=== PATIENT | female | born 1985 | race Caucasian/White ===

== ENCOUNTER 2016-09-24 19:18 | Emergency (ER) | payer MEDICAID ==
--- NOTE | 2016-09-24 19:44 | C.PDOC ---
History Of Present Illness 31 year old patient presents to the ED complaining of fever and body aches since yesterday. Patient also complains of a non-productive cough. Patient denies nausea, vomiting, or dysuria. She is also 26 weeks . Time Seen by Provider: 09/24/16 19:38 Chief Complaint (Nursing): Fever History Per: Patient History/Exam Limitations: no limitations Onset/Duration Of Symptoms: Days (1) Current Symptoms Are (Timing): Still Present Location Of Pain: Other Sick Contacts (Context): None Associated Symptoms: Fever, Cough, Other (body aches) Severity: Mild Pain Scale Rating Of: 3 Recent travel outside of the [place]: No Past Medical History Reviewed: Historical Data, Nursing Documentation, Vital Signs Vital Signs: Last Vital Signs Temp 98.1 F 09/24/16 19:29 Pulse 106 H 09/24/16 19:29 Resp 18 09/24/16 19:29 BP 111/71 09/24/16 19:29 Pulse Ox 98 09/24/16 19:46 Family History: States: Unknown Family Hx - Social History Hx Alcohol Use: No Hx Substance Use: No - Immunization History Hx Tetanus Toxoid Vaccination: Yes Hx Influenza Vaccination: Yes Hx Pneumococcal Vaccination: Yes Review Of Systems Except As Marked, All Systems Reviewed And Found Negative. Constitutional: Positive for: Fever, Other (body aches) Respiratory: Positive for: Cough (productive) Gastrointestinal: Negative for: Nausea, Vomiting Genitourinary: Negative for: Dysuria Physical Exam - Physical Exam Appears: Non-toxic, No Acute Distress Skin: Warm, Dry Head: Atraumatic, Normacephalic Eye(s): bilateral: Normal Inspection, PERRL, EOMI Nose: Normal Oral Mucosa: Moist Throat: Normal, No Erythema, No Exudate Neck: Normal ROM, Supple Chest: Symmetrical Cardiovascular: Rhythm Regular Respiratory: Normal Breath Sounds, No Rales, No Rhonchi, No Wheezing Extremity: Normal ROM Neurological/Psych: Oriented x3, Normal Speech, Normal Cognition Gait: Steady ED Course And Treatment - Laboratory Results Result Diagrams: 09/24/16 20:02 09/24/16 20:02 O2 Sat by Pulse Oximetry: 98 (RA) Pulse Ox Interpretation: Normal Progress Note: Plan: -Labs Disposition Counseled Patient/Family Regarding: Diagnosis - Disposition Referrals: [facility] [Outside] Disposition: HOME/ ROUTINE Disposition Time: 20:42 Condition: STABLE Prescriptions: guaiFENesin [Robitussin] 100 mg PO QID #120 dose Acetaminophen [Tylenol 325mg tab] 650 mg PO Q4 #20 tab Instructions: Influenza (ED) Forms: Gen Discharge Inst Romansh Print Language: SLOVENIAN - POA Present On Arrival: None - Clinical Impression Clinical Impression: Fever, Influenza, - Scribe Statement The provider has reviewed the documentation as recorded by the Wonibsalbador Olivarez Provider Attestation: All medical record entries made by the Wonibsalbador were at my direction and personally dictated by me. I have reviewed the chart and agree that the record accurately reflects my personal performance of the history, physical exam, medical decision making, and the department course for this patient. I have also personally directed, reviewed, and agree with the discharge instructions and disposition.
[2016-09-24 20:05] LABS: BASO % 0.5 % (0.0-2.0); EOS # 0.1 K/uL (0.0-0.7); EOS % 1.4 % (0.0-4.0); HEMATOCRIT 33.7 % (34.0-47.0); LYMPH # 1.1 K/uL (1.0-4.3); MEAN CELL VOLUME 91.7 fL (81.0-99.0); MEAN CORPUSCULAR HEMOGLOBIN 31.1 pg (27.0-31.0); MEAN CORPUSCULAR HGB CONC 33.9 g/dL (33.0-37.0); MEAN PLATELET VOLUME 8.5 fL (7.2-11.7); MONO # 0.5 K/uL (0.0-0.8); WHITE BLOOD COUNT 7.8 K/uL (4.8-10.8)
[2016-09-24 20:11] LABS: PLATELET COUNT 129 K/uL (130-400)
[2016-09-24 20:12] LABS: CHLORIDE 100 mmol/L (98-107); POTASSIUM 3.6 mmol/L (3.6-5.2); SODIUM 134 mmol/L (132-148)
[2016-09-24 20:14] LABS: ALB/GLOB RATIO 1.1 (1.0-2.1); ALKALINE PHOSPHATASE 47 U/L (38-126); ALT/SGPT 20 U/L (9-52); AST/SGOT 18 U/L (14-36); BILIRUBIN,TOTAL 0.1 mg/dL (0.2-1.3); BLOOD UREA NITROGEN 5 mg/dL (7-17); CARBON DIOXIDE 21 mmol/L (22-30); GFR AFRICAN-AMERICAN > 60; RBC URINE < 1 /hpf (0-3); TOTAL PROTEIN 6.9 g/dL (6.3-8.3); URINE BILIRUBIN NEGATIVE (NEGATIVE); URINE BLOOD 1+ (NEGATIVE); URINE COLOR Straw (YELLOW); URINE GLUCOSE (UA) NORMAL (Normal); URINE KETONE NEGATIVE (NEGATIVE); URINE LEUKOCYTE ESTERASE NEG Leu/uL (Negative); URINE PROTEIN NEGATIVE (NEGATIVE); URINE UROBILINOGEN NORMAL mg/dL (0.2-1.0); WBC URINE 1 /hpf (0-5)
[2016-09-24 20:15] LABS: CALCIUM 8.5 mg/dl (8.6-10.4); GLUCOSE,RANDOM 82 mg/dL (65-105)
[2016-09-24 21:16] VITALS: BP 113/69; PULSE 97; RESP 20; TEMP 98; O2SAT 100
== END 2016-09-24 21:15 | disposition home or self-care (01) ==
LOC: C.ER 19:18
DX: J11.1 Influenza due to unidentified influenza virus with other respiratory manifestations (principal); R50.9 Fever, unspecified; O26.892 Other specified pregnancy related conditions, second trimester; Z3A.26 26 weeks gestation of pregnancy

== ENCOUNTER 2016-10-07 11:32 | Emergency (ER) | payer MEDICAID ==
[2016-10-07 11:48] VITALS: BP 117/73; PULSE 106; RESP 22; TEMP 98.6; O2SAT 98
--- NOTE | 2016-10-07 12:25 | C.PDOC ---
History Of Present Illness The patient, a 31 y/o female who is currently , presents to the ED for evaluation of fever, right shoulder pain and generalized body aches which began around two days ago after she received a vaccination. Patient states she took Tylenol with minimal improvement. Otherwise, she denies chest pain, SOB, abdominal pain, nausea, vomiting. Time Seen by Provider: 10/07/16 11:58 Chief Complaint (Nursing): Flu-like Symptoms History Per: Patient History/Exam Limitations: no limitations Onset/Duration Of Symptoms: Days (2) Current Symptoms Are (Timing): Still Present Location Of Pain: Diffuse Myalgias Sick Contacts (Context): None Associated Symptoms: Fever. denies: Cough, Nausea, Vomiting Ear Symptoms: Bilateral: None Additional History Per: Patient Past Medical History Reviewed: Historical Data, Nursing Documentation, Vital Signs Vital Signs: Last Vital Signs Temp 98.6 F 10/07/16 11:42 Pulse 106 H 10/07/16 11:42 Resp 22 10/07/16 11:42 BP 117/73 10/07/16 11:42 Pulse Ox 98 10/07/16 13:02 - Medical History PMH: No Chronic Diseases Surgical History: No Surg Hx Family History: States: Unknown Family Hx - Social History Hx Alcohol Use: No Hx Substance Use: No - Immunization History Hx Tetanus Toxoid Vaccination: Yes Hx Influenza Vaccination: Yes Hx Pneumococcal Vaccination: Yes Review Of Systems Except As Marked, All Systems Reviewed And Found Negative. Constitutional: Positive for: Fever Respiratory: Positive for: Cough Gastrointestinal: Negative for: Nausea, Vomiting Musculoskeletal: Positive for: Shoulder Pain (right ), Other (generalized body pain ) Physical Exam - Physical Exam Appears: Non-toxic, No Acute Distress Skin: Normal Color, Warm, Dry Head: Atraumatic, Normacephalic Eye(s): bilateral: Normal Inspection, PERRL, EOMI Ear(s): Bilateral: Normal Nose: Normal, No Discharge Oral Mucosa: Moist Throat: Normal, No Erythema, No Exudate Neck: Normal ROM, Supple Chest: Symmetrical, No Deformity, No Tenderness Cardiovascular: Rhythm Regular, No Murmur Respiratory: Normal Breath Sounds, No Rales, No Rhonchi, No Wheezing Gastrointestinal/Abdominal: Soft, No Tenderness, No Guarding, No Rebound Extremity: Normal ROM, No Deformity, No Swelling Neurological/Psych: Oriented x3, Normal Speech Gait: Steady ED Course And Treatment O2 Sat by Pulse Oximetry: 98 (on RA) Pulse Ox Interpretation: Normal Medical Decision Making Medical Decision Making: Impression: 31 y/o female with fever, body aches Plan: * Tylenol PO * reassess and disposition Progress Notes: Patient received Tylenol PO. Patient remained afebrile and in no acute distress. Advise patient to continue Tylenol for any pain or fever. Drink fluids and to follow up with primary physician. Disposition Counseled Patient/Family Regarding: Diagnosis, Need For Followup, Rx Given - Disposition Disposition: HOME/ ROUTINE Disposition Time: 12:23 Condition: STABLE Additional Instructions: Usted puede saul tylenol 650-975mg cada 6 horas para cualquier dolor o fiebre Seguimiento en la clnica Instructions: Viral Syndrome (ED) Print Language: PASHTO - POA Present On Arrival: None - Clinical Impression Clinical Impression: Post-vaccination fever, Influenza-like illness - PA / COAT BASTER / Resident Statement MD/DO has reviewed & agrees with the documentation as recorded. - Scribe Statement The provider has reviewed the documentation as recorded by the Scribe (Daxa Olivarez) All medical record entries made by the Scribe were at my direction and personally dictated by me. I have reviewed the chart and agree that the record accurately reflects my personal performance of the history, physical exam, medical decision making, and the department course for this patient. I have also personally directed, reviewed, and agree with the discharge instructions and disposition.
== END 2016-10-07 12:30 | disposition home or self-care (01) ==
LOC: C.ER 11:32
DX: R50.83 Postvaccination fever (principal); J11.1 Influenza due to unidentified influenza virus with other respiratory manifestations

== ENCOUNTER 2016-11-14 09:27 | Emergency (ER) | payer MEDICAID ==
[2016-11-14 09:36] VITALS: O2SAT 99
[2016-11-14 09:39] VITALS: BMI 29.9
[2016-11-14] MEDS ORDERED: Albuterol-Ipratrop 3 mg / 0.5 (3 ml) UD IH STA (09:48)
[2016-11-14] MEDS ORDERED: Albuterol-Ipratrop 3 mg / 0.5 (3 ml) UD ONE (09:55)
--- NOTE | 2016-11-14 11:03 | C.PDOC ---
History Of Present Illness 31 yr old female who is 33 weeks , com complications and is on pre care, presents to the ER with complaints of 2 day history of cough, congestion and difficulty breathing. Patient reports she had a history of asthma as a child but none since then. Patient states she has not tried any medications yet. Patient states the baby is moving. Denies fever, chest pain, nausea, vomiting, abdominal pain, diarrhea, dysuria, vaginal bleeding, weakness or numbness. Time Seen by Provider: 11/14/16 09:40 Chief Complaint (Nursing): Cough, Cold, Congestion History/Exam Limitations: no limitations Onset/Duration Of Symptoms: Days (2) Past Medical History Reviewed: Historical Data, Nursing Documentation, Vital Signs Vital Signs: Last Vital Signs Temp 98.3 F 11/14/16 09:35 Pulse 118 H 11/14/16 09:35 Resp 24 11/14/16 09:35 BP 122/74 11/14/16 09:35 Pulse Ox 99 11/14/16 11:06 Family History: States: No Known Family Hx - Social History Hx Alcohol Use: No Hx Substance Use: No - Immunization History Hx Tetanus Toxoid Vaccination: Yes Hx Influenza Vaccination: Yes Hx Pneumococcal Vaccination: Yes Review Of Systems Except As Marked, All Systems Reviewed And Found Negative. Constitutional: Negative for: Fever ENT: Positive for: Nose Congestion Cardiovascular: Negative for: Chest Pain Respiratory: Positive for: Cough, Other ((+) Difficulty breathing. ) Gastrointestinal: Negative for: Nausea, Vomiting, Abdominal Pain, Diarrhea Genitourinary: Negative for: Dysuria, Vaginal Bleeding Neurological: Negative for: Weakness, Numbness Physical Exam - Physical Exam Appears: Well, Non-toxic, No Acute Distress Skin: Warm, Dry, No Rash Head: Atraumatic, Normacephalic Throat: Normal, No Erythema, No Exudate Neck: Normal, Normal ROM, Supple Chest: Symmetrical, No Tenderness Cardiovascular: Rhythm Regular, No Murmur Respiratory: No Rales, No Rhonchi, No Stridor, Wheezing (Bilaterally) Gastrointestinal/Abdominal: Normal Exam, Soft, No Tenderness, Other (gravid non tender uterus) Extremity: Normal ROM, No Swelling Neurological/Psych: Oriented x3, Normal Speech ED Course And Treatment O2 Sat by Pulse Oximetry: 99 Medical Decision Making Medical Decision Making: PLAN: * Albuterol IH wheezint resolved post tx dc home mdi Disposition - Disposition Referrals: Clinic,Med Surg [Primary Care Provider] - Disposition: HOME/ ROUTINE Disposition Time: 11:22 Condition: FAIR Prescriptions: Albuterol HFA [Ventolin HFA 90 mcg/actuation (8 g)] 1 puff IH QID PRN #1 puff PRN Reason: Cough Inhaler, Assist Devices [Space Chamber Plus] 1 each MC PRN #1 spacer Instructions: Upper Respiratory Infection (ED), Reactive Airways Disease (ED) - Clinical Impression Clinical Impression: Viral syndrome, Reactive airway disease - Scribe Statement The provider has reviewed the documentation as recorded by the Wonibsalbador Daniel Provider Attestation: All medical record entries made by the Wonibsalbador were at my direction and personally dictated by me. I have reviewed the chart and agree that the record accurately reflects my personal performance of the history, physical exam, medical decision making, and the department course for this patient. I have also personally directed, reviewed, and agree with the discharge instructions and disposition.
[2016-11-14 11:27] VITALS: BP 109/74; PULSE 107; RESP 20; TEMP 97.9
== END 2016-11-14 11:29 | disposition home or self-care (01) ==
LOC: SUPCPDRO 09:27 → C.ER 09:27
DX: B34.9 Viral infection, unspecified (principal); J98.9 Respiratory disorder, unspecified

== ENCOUNTER 2016-12-28 21:01 | Inpatient (IN) | payer MEDICAID ==
[2016-12-28] MEDS ORDERED: Dextrose 5%/Lactated Ringer's 1,000 ML IV SCH (21:30)
[2016-12-28] MEDS ORDERED: Lactated Ringer's 1,000 ML IV SCH (21:30)
[2016-12-28 21:51] LABS: BASO % 0.1 % (0.0-2.0); EOS # 0.1 K/uL (0.0-0.7); EOS % 1.2 % (0.0-4.0); HEMATOCRIT 34.9 % (34.0-47.0); LYMPH # 2.1 K/uL (1.0-4.3); LYMPH % 22.8 % (20.0-40.0); MEAN CELL VOLUME 92.8 fL (81.0-99.0); MEAN CORPUSCULAR HEMOGLOBIN 31.6 pg (27.0-31.0); MEAN PLATELET VOLUME 10.2 fL (7.2-11.7); MONO # 0.7 K/uL (0.0-0.8); MONO % 7.5 % (0.0-10.0); RED CELL DISTRIBUTION WIDTH 15.4 % (11.5-14.5); WHITE BLOOD COUNT 9.2 K/uL (4.8-10.8)
[2016-12-28 21:57] LABS: CHLORIDE 107 mmol/L (98-107)
[2016-12-28 21:58] LABS: POTASSIUM 3.5 mmol/L (3.6-5.2); SODIUM 136 mmol/L (132-148)
[2016-12-28 21:59] LABS: RBC URINE 3 /hpf (0-3); TRANSITIONAL EPITHIAL < 1 /hpf (0-3); URINE BACTERIA FEW (<OCC); URINE BILIRUBIN NEGATIVE (NEGATIVE); URINE BLOOD NEGATIVE (NEGATIVE); URINE COLOR Yellow (YELLOW); URINE GLUCOSE (UA) NORMAL (Normal); URINE KETONE NEGATIVE (NEGATIVE); URINE LEUKOCYTE ESTERASE 3+ Leu/uL (Negative); URINE PROTEIN NEGATIVE (NEGATIVE); URINE UROBILINOGEN NORMAL mg/dL (0.2-1.0); WBC URINE 66 /hpf (0-5)
--- NOTE | 2016-12-28 21:59 | OBHP ---
Datetime: 12/28/2016 21:27 IP Adm Impression: Postterm, intrauterine ; No Active Labor; Intact Membranes IP Admit Plan: Admit to unit; Initiate labor augmentation protocol Admit Comment, IP Provider: 31 y.o. , LMP unsure, GLORIA 12/23/16, EGA 40w 5d, by sono 08/2016 at 20 weeks, c/o contractions since 1800 hours. (+) AFM; denies LOF, VB. care: [facility]; late marnie trant at 21 weeks; no other issues P Ob: 07/15/09, , male, 7lb 5oz, [facility]; no complications P BLOWER INSULATOR: 13 x month x 5-6. h/o STI PMH: asthma since mid 20s; never intubated; never on steriods. Uses pump PRN; last used months ago PSH: denies NKDA Meds: PNV - QD Soc Hx: denies tobacco, illicit drug or EtOH use. Lives with her son. . With FOB x 7 year s; same father for both children. No longer working; works as a it operations analyst. Fam Hx: Mother alive 50 - HTN, DM, ?chol. Father alive 45 - no med issues. No known fam h/o cancer . P.E.: as above. WD in NAD. Awake, alert, oriented to time, person and place. Pleasant and cooperat fallon Assessment: 31 y.o. P1, 40w 5d, latent phase of labor. GBS (-). Category 1 tracing. C;linically st able. Plan: 1) Admit 2) NPO 3) IVFs 4) continuous EFM 5) Pitocin 6) Pain meds/ epidural, upon request 7) Anticipate vaginal delivery Pelvic Type - PN: Adequate Extremities - PN: Normal Abdomen - PN: Normal Back - PN: Normal Breast - PN: Not Done Lungs - PN: Normal Heart - PN: Normal Thyroid - PN: Not Done Neurologic - PN: Normal HEENT - PN: Normal General - PN: Normal Weight - Estimated: 3632 Presentation-Admit: Vertex FHR - Baseline A Provider: 125 Membranes, Provider: Intact Contraction Comments Provider: 7-8 Comments, ACOG Physical Exam: Abdomen: Gravid. Firm with contractions upon palpation. Fundal height 37 cm All other systems reviewed and are negative Gestation - Est Wks by US: 40w 5d IP Hx Assessment: The History has been Reviewed and is Current Vital Signs Provider: Reviewed IP Indication for Induction: Not Applicable IP Chief Complaint: Uterine contractions NICHD Variability Prov Fetus A: Moderate 6-25bpm NICHD Accel Fetus A IP Provider: 15X15 FHR Category Provider Fetus A: Category I NICHD Decel Fetus A IP Provider: None Dilatation, Provider: 3-4 Effacement, Provider: 70 Station, Provider: -3 Genitourinary Exam: Normal DTRs - PN: Not Done
[2016-12-28 22:00] LABS: CARBON DIOXIDE 19 mmol/L (22-30); GFR AFRICAN-AMERICAN > 60
[2016-12-28 22:01] LABS: ALKALINE PHOSPHATASE 99 U/L (38-126); ALT/SGPT 24 U/L (9-52); AST/SGOT 25 U/L (14-36); BILIRUBIN,TOTAL 0.5 mg/dL (0.2-1.3); BLOOD UREA NITROGEN 14 mg/dL (7-17); CALCIUM 8.9 mg/dl (8.6-10.4); GLUCOSE,RANDOM 91 mg/dL (65-105); TOTAL PROTEIN 6.6 g/dL (6.3-8.3)
[2016-12-29] MEDS ORDERED: Oxytocin 30 UNIT 30 UNITS/500 ML BAG IV PRN (04:00)
[2016-12-29] MEDS ORDERED: Oxytocin 30 UNIT 30 UNITS/500 ML BAG IV ONE (04:19)
[2016-12-29] MEDS ORDERED: Oxycodone/Acetaminophen 5/325 mg Tab PO PRN (07:38)
--- NOTE | 2016-12-29 07:44 | OBDS ---
MATERNAL INFORMATION Provider Comments: baby deliverd in [place] end clean episotomy made. repaired no com LABOR SUMMARY EDC: 12/23/2016 00:00 No. Babies in Womb: 1 LABOR INFORMATION Onset of Labor: 12/28/2016 12:00 Group B Beta Strep: Negative MEMBRANES Membranes Rupture Method: Spontaneous Rupture of Membranes: 12/29/2016 05:15 Amniotic Fluid Color: Light Meconium Amniotic Fluid Amount: Small Amniotic Fluid Odor: None VAGINAL DELIVERY Episiotomy: Right Mediolateral Laceration Extension: Second Degree Laceration Type: Perineal Sponge Count Correct: Yes Sharps Count Correct: Yes IDENTIFICATION/MEDS BABY A ID Band Number: [id number] Sensor Number: [id number]
[2016-12-29] MEDS ORDERED: Bupivacaine 0.125%/FentaNYL 200 ML EPI ONE (07:51)
[2016-12-29] MEDS ORDERED: Bupivacaine HCl 0.25% PF (10 ml) Inj ONE (07:51)
[2016-12-29] MEDS ORDERED: Oxytocin 30 UNIT 30 UNITS/500 ML BAG IV SCH (08:45)
--- NOTE | 2016-12-29 14:01 | OBDS ---
Delivery Doctor: Kari Ames MD Volumetric Weigher: Promise Kidd RN Anesthesiologist: Delivery Anesthesia: Epidural Provider Comments: baby deliverd in [place] end clean no com Attempted: No Labor Anesthesia: Epidural Reason for Induction: Not Applicable Complete Dilatation: 12/29/2016 12:22 Oxytocin: Augmentation Antibiotics # of Doses: 0 Antibiotics Time of Last Dose: 0 Steroids Given: None Reason Steroids Not Administered: Not Applicable Stage 1 hrs: 24 Stage 1 min: 22 Laceration Extension: N/A Laceration Type: None Shoulder Dystocia : No Presentation: Cephalic Cephalic Presentation: Vertex Vertex Position: Left Occipital Anterior Gestational Age at Delivery: 40.6 Gestational Status: Term Nuchal Cord : N/A
[2016-12-30 06:31] LABS: MEAN CELL VOLUME 94.1 fL (81.0-99.0); MEAN CORPUSCULAR HGB CONC 32.9 g/dL (33.0-37.0); MEAN PLATELET VOLUME 10.2 fL (7.2-11.7); RED CELL DISTRIBUTION WIDTH 15.6 % (11.5-14.5); WHITE BLOOD COUNT 12.7 K/uL (4.8-10.8)
--- NOTE | 2016-12-30 08:46 | OBPPN ---
Datetime: 12/30/2016 08:44 PP Pain Prov: Within normal limits PP Nausea Prov: Denies PP Flatus Prov: Yes PP Breasts Prov: Normal PP Heart Prov: Normal PP Lungs Prov: Normal PP Abdomen/Uterus Prov: Normal PP Lochia Prov: Normal PP Vulva/Perineum Prov: Normal PP CVA Tenderness Prov: Normal PP Extremities Prov: Normal PP Comments Phys Exam Prov: Abd: Soft, NT, BS- present. UT- Firm PP Impression Prov: Normal progression PP Plan Prov: Continue present management PP Progress Note Prov: S/p , PPD @1 Clinically STable. Plan: Continue care. Vital Signs Provider PP: Reviewed
[2016-12-31 00:53] VITALS: PULSE 67
--- NOTE | 2016-12-31 07:28 | OBPPN ---
Datetime: 12/31/2016 07:25 PP Pain Prov: Within normal limits PP Nausea Prov: Denies PP Flatus Prov: Yes PP Breasts Prov: Normal PP Heart Prov: Normal PP Lungs Prov: Normal PP Abdomen/Uterus Prov: Normal PP Lochia Prov: Normal PP Vulva/Perineum Prov: Normal PP CVA Tenderness Prov: Normal PP Extremities Prov: Normal PP Comments Phys Exam Prov: Abd: Soft, Nt, BS- present UT- Firm PP Impression Prov: Normal progression PP Plan Prov: Discharge PP Progress Note Prov: S/P , PPD#2 Clinically stable. Plan: D/c Home
--- NOTE | 2016-12-31 07:32 | OBDCSUM ---
Datetime: 12/31/2016 07:28 Discharged to, Provider: Home Follow up at, Provider: [facility] Disch Instr Activity: Normal activity Disch Instr Diet: Regular Discharge Instructions, Provider: Routine instructions given Discharge Diagnosis, Provider: Term Delivered Discharge Time: 12/31/2016 07:29 Follow up in weeks, Provider: 6 weeks Disch Referrals: None Contraception discussed, Prov: Yes Discharge Comment, Provider: s/p Unconplicated , Clinically Stable Discharge Diagnosis Prov Other: s/p Unconplicated , Clinically Stable
[2016-12-31 10:44] VITALS: BP 114/74; RESP 18; TEMP 97.9; O2SAT 98
== END 2016-12-31 11:47 | disposition home or self-care (01) | DRG 373 ==
LOC: C.EROB 21:01 → C.4D 21:17 → C.4M 12-29 15:26
PROVIDERS: ADMIT Obstetrics & Gynecology; ATTEND Obstetrics & Gynecology
PROC: 10E0XZZ Delivery of Products of Conception, External Approach (ICD-10-PCS; principal; 2016-12-29)
PROC: 0KQM0ZZ Repair Perineum Muscle, Open Approach (ICD-10-PCS; 2016-12-29)
DX: O63.0 Prolonged first stage (of labor) (principal); J45.909 Unspecified asthma, uncomplicated; O09.33 Supervision of pregnancy with insufficient antenatal care, third trimester; O77.0 Labor and delivery complicated by meconium in amniotic fluid; Z3A.40 40 weeks gestation of pregnancy; O26.893 Other specified pregnancy related conditions, third trimester; O48.0 Post-term pregnancy; Z37.0 Single live birth; O70.1 Second degree perineal laceration during delivery

== ENCOUNTER 2017-05-20 08:33 | Emergency (ER) | payer MEDICAID ==
[2017-05-20 08:33] VITALS: BMI 29.9
[2017-05-20 09:22] VITALS: RESP 18; TEMP 98.5
--- NOTE | 2017-05-20 09:51 | C.PDOC ---
History Of Present Illness 32 year old female presents to the ED for evaluation of recurring right shoulder and wrist pain for 3 weeks. Patient states first episode was 3 months ago, but symptoms self resolved. Patient states right shoulder pain is worse with movement and is dependent on position. Patient denies associated weakness. Patient reports intermittent right wrist pain and occasional paresthesia to palm. Patient denies trauma and neck pain. Reports relief with NSAIDS and Tylenol. RECUR R SHOULDER AND WRIST PAIN X 3 WEEKS. PS FIRST EPISODE 3 MO AGO, RESOLVED. R SHOULDER, WORSE W MOVEMENT AND DEPENDENT POSITION. NO ASSOC WEAK. +INTERMIT R WRIST PAIN INTERMIT, OCC PARESTHESIA PALM. NO TRAUMA, NECK PAIN. +RELIEF W NSAIDS AND TYLENOL. EXAM NAD EXT R SHOULDER +BEER CAN TEST R SHOULDER. AROM WO DIFF. PAIN RELIEF W ABDUCTION 180. R WRIST AROM WO DIFF NO SWELL DEFORM NONTEND NEURO INTAC SKIN INTACT Time Seen by Provider: 05/20/17 09:18 Chief Complaint (Nursing): Finger,Hand,&Wrist History Per: Patient History/Exam Limitations: no limitations Current Symptoms Are (Timing): Still Present Quality: "Pain" Exacerbating Factor(s): Movement Additional History Per: Patient Past Medical History Reviewed: Historical Data, Nursing Documentation, Vital Signs Vital Signs: Last Vital Signs Temp 98.5 F 05/20/17 08:46 Pulse 71 05/20/17 09:59 Resp 18 05/20/17 09:59 BP 110/65 05/20/17 09:59 Pulse Ox 100 05/20/17 23:19 - Medical History PMH: No Chronic Diseases Surgical History: No Surg Hx - [facility] Procedures DELIVERY OF PRODUCTS OF CONCEPTION, EXTERNAL APPROACH (12/28/16) REPAIR PERINEUM MUSCLE, OPEN APPROACH (12/28/16) Family History: States: Unknown Family Hx - Social History Hx Alcohol Use: No Hx Substance Use: No - Immunization History Hx Tetanus Toxoid Vaccination: Yes Hx Influenza Vaccination: Yes Hx Pneumococcal Vaccination: Yes Review Of Systems Musculoskeletal: Positive for: Shoulder Pain (right), Other (right wrist pain ) . Negative for: Neck Pain Neurological: Positive for: Other (paresthesia ) Physical Exam - Physical Exam Appears: Non-toxic, No Acute Distress Skin: Normal Color, Warm, Dry Extremity: Normal ROM (right shoulder, right wrist ), No Tenderness, Capillary Refill (less than 2 seconds ), No Deformity, No Swelling, Other (right shoulder : positive beer can test. pain relief with abduction 180. ) Neurological/Psych: Oriented x3, Normal Speech, Normal Cognition, Normal Sensation, Other (no focal deficits ) Gait: Steady ED Course And Treatment O2 Sat by Pulse Oximetry: 100 (on RA) Pulse Ox Interpretation: Normal Disposition Counseled Patient/Family Regarding: Diagnosis, Need For Followup, Rx Given - Disposition [facility]errals: [facility] [Outside] [facility] [Outside] Disposition: HOME/ ROUTINE Disposition Time: 09:48 Condition: IMPROVED Prescriptions: Acetaminophen [Tylenol Extra Strength] 2 tab PO Q6 #30 tablet Ibuprofen [Motrin] 600 mg PO Q6 #30 tab Instructions: Rotator Cuff Tendinitis (ED), Wrist Sprain (ED) Print Language: KYRGYZ - Clinical Impression Clinical Impression: Shoulder strain, Wrist strain - Scribe Statement The provider has reviewed the documentation as recorded by the Scribe (Daxa Olivarez) Provider Attestation: All medical record entries made by the Scribe were at my direction and personally dictated by me. I have reviewed the chart and agree that the record accurately reflects my personal performance of the history, physical exam, medical decision making, and the department course for this patient. I have also personally directed, reviewed, and agree with the discharge instructions and disposition. Orthopedic Care Application Of:: Volar Splint
[2017-05-20 09:59] VITALS: BP 110/65; PULSE 71
[2017-05-20 11:55] VITALS: O2SAT 100
== END 2017-05-20 10:01 | disposition home or self-care (01) ==
LOC: C.ER 08:33
DX: S46.911A Strain of unspecified muscle, fascia and tendon at shoulder and upper arm level, right arm, initial encounter (principal); S66.911A Strain of unspecified muscle, fascia and tendon at wrist and hand level, right hand, initial encounter; X58.XXXA Exposure to other specified factors, initial encounter

== ENCOUNTER 2018-06-21 14:06 | Emergency (ER) | payer MEDICAID ==
[2018-06-21 14:06] VITALS: BMI 29.9
[2018-06-21 14:37] VITALS: RESP 18
--- NOTE | 2018-06-21 17:19 | C.PDOC ---
History Of Present Illness 33 y/o female presents to the ED complaining of vomiting and diarrhea since last night. Associated with upper abdominal pain. (+) Sick contacts in the patient's children at home. Otherwise she denies any blood in the stool, fevers, chills, or urinary symptoms. Time Seen by Provider: 06/21/18 14:25 Chief Complaint (Nursing): GI Problem History Per: Patient History/Exam Limitations: no limitations Onset/Duration Of Symptoms: Days Current Symptoms Are (Timing): Still Present Location Of Pain/Discomfort: Epigastric Associated Symptoms: Vomiting, Diarrhea Past Medical History Reviewed: Historical Data, Nursing Documentation, Vital Signs Vital Signs: Last Vital Signs Temp 99.5 F 06/21/18 14:36 Pulse 108 H 06/21/18 14:36 Resp 18 06/21/18 14:36 BP 119/83 06/21/18 14:36 Pulse Ox 95 06/21/18 14:36 - Medical History PMH: Gastritis - [facility] Procedures DELIVERY OF PRODUCTS OF CONCEPTION, EXTERNAL APPROACH (12/28/16) REPAIR PERINEUM MUSCLE, OPEN APPROACH (12/28/16) Family History: States: Unknown Family Hx - Social History Hx Alcohol Use: No Hx Substance Use: No - Immunization History Hx Tetanus Toxoid Vaccination: Yes Hx Influenza Vaccination: Yes Hx Pneumococcal Vaccination: Yes Review Of Systems Except As Marked, All Systems Reviewed And Found Negative. Constitutional: Negative for: Fever, Chills Cardiovascular: Negative for: Chest Pain Respiratory: Negative for: Cough, Shortness of Breath Gastrointestinal: Positive for: Nausea, Vomiting, Abdominal Pain, Diarrhea. Negative for: Hematochezia, Hematemesis Genitourinary: Negative for: Dysuria, Frequency, Incontinence Physical Exam - Physical Exam Appears: Well, Non-toxic, No Acute Distress Skin: Normal Color, Warm, Dry Head: Atraumatic, Normacephalic Eye(s): bilateral: Normal Inspection, PERRL, EOMI Oral Mucosa: Moist Neck: Normal ROM Chest: Symmetrical Cardiovascular: Rhythm Regular, No Murmur Respiratory: Normal Breath Sounds, No Rales, No Rhonchi, No Wheezing Gastrointestinal/Abdominal: Soft, No Tenderness, No Distention Extremity: Bilateral: Atraumatic, Normal Color And Temperature Neurological/Psych: Oriented x3, Normal Speech ED Course And Treatment O2 Sat by Pulse Oximetry: 95 (RA) Pulse Ox Interpretation: Normal Progress Note: Patient treated with 4 mg Zofran in the ER. On reevaluation patient remains afebrile, AAOx3, tolerating PO liquids. Plan is to discharge patient home, advised to follow up with PMD. Reassessment Condition: Improved Disposition - Disposition Disposition: HOME/ ROUTINE Disposition Time: 18:24 Condition: STABLE Additional Instructions: Follow up with your PMD within 1-2 days. Return to ED if feel worse. Prescriptions: Ibuprofen [Motrin Tab] 600 mg PO Q8 #30 tab Famotidine [Pepcid] 20 mg PO BID #20 tab Ondansetron ODT [Zofran ODT] 4 mg PO .Q4-6H PRN #20 odt PRN Reason: Nausea/Vomiting Instructions: Viral Gastroenteritis, Adult (DC) Forms: INXPO (Irish) - Clinical Impression Clinical Impression: Gastroenteritis - PA / CNS / Resident Statement MD/DO has reviewed & agrees with the documentation as recorded. - Scribe Statement The provider has reviewed the documentation as recorded by the Wonibsalbador Mendoza All medical record entries made by the Scribe were at my direction and personally dictated by me. I have reviewed the chart and agree that the record accurately reflects my personal performance of the history, physical exam, medical decision making, and the department course for this patient. I have also personally directed, reviewed, and agree with the discharge instructions and disposition.
[2018-06-21 17:38] VITALS: BP 112/77; PULSE 94; TEMP 98.5
[2018-06-21 18:25] VITALS: O2SAT 95
== END 2018-06-21 18:30 | disposition home or self-care (01) ==
LOC: C.ER 14:06
DX: K52.9 Noninfective gastroenteritis and colitis, unspecified (principal)